=== PATIENT | male | born 1940 | race Two or more races ===

== ENCOUNTER 2021-05-05 14:15 | Emergency (ER) | payer OTHER ==
[~2021-05-05] VITALS: Ht 172.7 cm; Wt 83.0 kg
[2021-05-05] MEDS ORDERED: ELIQUIS2.5 MG PO (14:29)
[2021-05-05] MEDS ORDERED: NOVOLIN 70100 UNIT/1 SQ (14:31)
[2021-05-05] MEDS ORDERED: HYDRALAZINE HCL25 MG PO (14:31)
[2021-05-05] MEDS ORDERED: CARDURA8 MG PO (14:31)
[2021-05-05] MEDS ORDERED: TENORMIN50 M1 PO (14:31)
[2021-05-05] MEDS ORDERED: SINGULAIR10 MG PO (14:32)
[2021-05-05] MEDS ORDERED: AVAPRO300 MG PO (14:32)
[2021-05-05] MEDS ORDERED: INSPRA25 MG PO (14:32)
[2021-05-05] MEDS ORDERED: BUMETANIDE1 MG PO (14:33)
[2021-05-05] MEDS ORDERED: CRESTOR5 MG PO (14:33)
[2021-05-05] MEDS ORDERED: BREO ELLIPTA 21 EACH IH (14:34)
[2021-05-05] MEDS ORDERED: ALLOPURINOL300 MG PO (14:34)
== END 2021-05-05 17:43 | disposition home or self-care (01) ==
LOC: ER 14:15
DX: D64.9 Anemia, unspecified (principal)

== ENCOUNTER 2021-08-16 11:57 | Inpatient (IN) | payer OTHER ==
[~2021-08-16] VITALS: Ht 175.3 cm; Wt 83.0 kg
[~2021-08-16 11:57] MED LIST: ALLOPURINOL300 MG PO; AVAPRO300 MG PO; BREO ELLIPTA 21 EACH IH; BUMETANIDE1 MG PO; CARDURA8 MG PO; CRESTOR5 MG PO; ELIQUIS2.5 MG PO; HYDRALAZINE HCL25 MG PO; INSPRA25 MG PO; NOVOLIN 70100 UNIT/1 SQ; SINGULAIR10 MG PO; TENORMIN50 M1 PO
[2021-08-16] MEDS ORDERED: ZOLPIDEM TARTRA10 MG PO (12:20)
[2021-08-18] MEDS ORDERED: EPLERENONE25 MG (08:51)
[2021-08-18] MEDS ORDERED: LISINOPRIL5 MG (08:51)
[2021-08-18] MEDS ORDERED: ALPRAZOLAM0.5 MG (08:51)
[2021-08-18] MEDS ORDERED: ABANEU-SL TABL1 EACH (08:52)
== END 2021-08-29 22:35 | disposition home or self-care (01) | DRG 330 ==
LOC: ER 11:57 → SURH 15:17
PROVIDERS: Surgery; ADMIT Internal Medicine; ATTEND Internal Medicine
PROC: 30233N1 Transfusion of Nonautologous Red Blood Cells into Peripheral Vein, Percutaneous Approach (ICD-10-PCS; 2021-08-16)
PROC: 02HV33Z Insertion of Infusion Device into Superior Vena Cava, Percutaneous Approach (ICD-10-PCS; 2021-08-19)
PROC: 07BC4ZZ Excision of Pelvis Lymphatic, Percutaneous Endoscopic Approach (ICD-10-PCS; 2021-08-21)
PROC: 30243R1 Transfusion of Nonautologous Platelets into Central Vein, Percutaneous Approach (ICD-10-PCS; 2021-08-21)
PROC: 0DTF4ZZ Resection of Right Large Intestine, Percutaneous Endoscopic Approach (ICD-10-PCS; principal; 2021-08-21 15:30)
PROC: 0D9670Z Drainage of Stomach with Drainage Device, Via Natural or Artificial Opening (ICD-10-PCS; 2021-08-24)
PROC: 3E0G76Z Introduction of Nutritional Substance into Upper GI, Via Natural or Artificial Opening (ICD-10-PCS; 2021-08-25)
DX: D12.0 Benign neoplasm of cecum (principal); K92.2 Gastrointestinal hemorrhage, unspecified; D62 Acute posthemorrhagic anemia; N17.8 Other acute kidney failure; D63.1 Anemia in chronic kidney disease; D69.59 Other secondary thrombocytopenia; E11.65 Type 2 diabetes mellitus with hyperglycemia; T42.6X5A Adverse effect of other antiepileptic and sedative-hypnotic drugs, initial encounter; R33.8 Other retention of urine; R59.0 Localized enlarged lymph nodes; E11.22 Type 2 diabetes mellitus with diabetic chronic kidney disease; I12.9 Hypertensive chronic kidney disease with stage 1 through stage 4 chronic kidney disease, or unspecified chronic kidney disease; N18.9 Chronic kidney disease, unspecified; I08.1 Rheumatic disorders of both mitral and tricuspid valves; I25.10 Atherosclerotic heart disease of native coronary artery without angina pectoris; J45.909 Unspecified asthma, uncomplicated; I48.91 Unspecified atrial fibrillation; Z79.84 Long term (current) use of oral hypoglycemic drugs; R53.81 Other malaise
CPT/HCPCS: 70544